=== PATIENT | male | born 1965 | race Caucasian/White ===

== ENCOUNTER 2017-09-26 16:23 | Emergency (ER) | payer BC, MEDICARE ==
[2017-09-26 16:42] VITALS: BP 139/68
--- NOTE | 2017-09-26 17:09 | ED ---
Back Pain - HPI Summary HPI Summary: 52 yo WM h/o kidney transplant and "broken back" c/o right lumbar back strain and pain with right buttock pain after lifting heavy objects at home - History of Current Complaint Chief Complaint: UCBackPain Stated Complaint: BACK PAIN Time Seen by Provider: 09/26/17 16:43 Hx Obtained From: Patient Onset/Duration: Sudden Onset Onset/Duration: Started Hours Ago Timing: Constant Back Pain Location: Is Discrete @ - right lumbar Severity Initially: Moderate Severity Currently: Moderate Pain Intensity: 8 - Allergies/Home Medications Allergies/Adverse Reactions: Allergies Allergy/AdvReac Type Severity Reaction Status Date / Time MS Cephalexin [Cephalexin] Allergy Severe Hives Verified 05/01/17 10:10 MS Gabapentin [Gabapentin] Allergy See Comment Verified 05/01/17 10:11 chloride anesthetic for Allergy See Comment Uncoded 02/03/16 20:39 surgery Home Medications: Home Medications Pantoprazole TAB (NF) [Protonix TAB (NF)] 20 mg PO BID 09/26/17 [History Confirmed 09/26/17] PMH/Surg Hx/FS Hx/Imm Hx Previously Healthy: No - h/o back pains Endocrine/Hematology History: Reports: Hx Diabetes - insulin Cardiovascular History: Reports: Hx Hypertension Denies: Hx Pacemaker/ICD Sensory History: Denies: Hx Hearing Aid Psychiatric History: Denies: Hx Panic Disorder - Surgical History Surgery Procedure, Year, and Place: Right Eye Surgery, 2016 LUMBAR SURG. KIDNEY TRANSPLANT,2013. VITRECTOMY 1999. CATARACTS. LASER SURGERY FOR RETINOPATHY. AV FISTULA RT ARM FOR DIALYSIS. HEART STENTS-HAS CARDS. LSP ORIF L1&2 Infectious Disease History: No Infectious Disease History: Denies: Hx Clostridium Difficile, Hx Hepatitis, Hx Human Immunodeficiency Virus (HIV), Hx of Known/Suspected MRSA, Hx Shingles, Hx Tuberculosis, Hx Known/ Suspected VRE, Hx Known/Suspected VRSA, History Other Infectious Disease, Traveled Outside the [place] in Last 30 Days - Family History Known Family History: Positive: None, Cardiac Disease, Hypertension - Social History Alcohol Use: None Substance Use Type: Reports: None Smoking Status (MU): Heavy Every Day Tobacco Smoker Type: Cigarettes Amount Used/How Often: 1/2 PPD Review of Systems Constitutional: Negative Eyes: Negative ENT: Negative Cardiovascular: Negative Respiratory: Negative Gastrointestinal: Negative Genitourinary: Negative Musculoskeletal: Other - back pain Positive: Myalgia, Decreased ROM Skin: Negative Neurological: Negative Negative: Weakness, Paresthesia, Numbness Psychological: Normal All Other Systems Reviewed And Are Negative: Yes Physical Exam - Summary Physical Exam Summary: Vital Signs Reviewed: Yes Appearance: Positive: Well-Appearing Skin: Neg skin lesions Respiratory/Lung Sounds: Positive: Clear to Auscultation Cardiovascular: Positive: Normal, RRR, S1, S2 Abdomen Description: Positive: Nontender Musculoskeletal: Positive: right paraspinal and right buttock muscle tenderness Neurological: Positive: Normal Psychiatric: Positive: Normal Triage Information Reviewed: Yes Vital Signs On Initial Exam: Initial Vitals Temp Pulse Resp BP Pulse Ox 37.4 C 85 17 139/68 98 09/26/17 16:35 09/26/17 16:35 09/26/17 16:35 09/26/17 16:35 09/26/17 16:35 Vital Signs Reviewed: Yes Diagnostics - Vital Signs Vital Signs Temp Pulse Resp BP Pulse Ox 09/26/17 16:35 37.4 C 85 17 139/68 98 - Laboratory Lab Statement: Any lab studies that have been ordered have been reviewed, and results considered in the medical decision making process. Back Pain Course/Dx - Course Course Of Treatment: decreased dose of zanflex at bedtime and physical therapy for acute flare-up and to address chronic back pains secondary to old injury - Diagnoses Provider Diagnoses: Back ache, Low back strain Discharge - Sign-Out/Discharge Documenting (check all that apply): Discharge/Admit/Transfer - Discharge Plan Condition: Stable Disposition: HOME Prescriptions: tiZANidine TAB* [Zanaflex TAB*] 2 mg PO BEDTIME 5 Days #5 tab Patient Education Materials: Low Back Strain (ED) Referrals: Kenny Iverson MD [Primary Care Provider] - - Billing Disposition and Condition Condition: STABLE Disposition: Home
== END 2017-09-26 17:09 | disposition home or self-care (01) ==
LOC: UCCORT 16:23
DX: S39.012A Strain of muscle, fascia and tendon of lower back, initial encounter (principal); X50.0XXA Overexertion from strenuous movement or load, initial encounter; Y93.89 Activity, other specified; Y92.9 Unspecified place or not applicable; E11.9 Type 2 diabetes mellitus without complications; Z79.4 Long term (current) use of insulin; I10 Essential (primary) hypertension; Z94.0 Kidney transplant status; Z09 Encounter for follow-up examination after completed treatment for conditions other than malignant neoplasm; Z88.4 Allergy status to anesthetic agent; Z88.1 Allergy status to other antibiotic agents; Z88.8 Allergy status to other drugs, medicaments and biological substances; F17.210 Nicotine dependence, cigarettes, uncomplicated
CPT/HCPCS: 99212; G0463